=== PATIENT | female | born 1935 | race Caucasian/White ===

== ENCOUNTER 2017-05-10 09:34 | Emergency (ER) | payer OTHER ==
[~2017-05-10] VITALS: Ht 162.6 cm; Wt 68.0 kg
[2017-05-10 09:39] VITALS: BP 168/76; PULSE 73; RESP 16; TEMP 98.4; O2SAT 98
[2017-05-10] MEDS ORDERED: HYDR200T3 PO (10:29)
[2017-05-10] MEDS ORDERED: PRED5TAB PO (10:29)
[2017-05-10] MEDS ORDERED: ALEN1TAB48 PO (10:29)
[2017-05-10] MEDS ORDERED: FOLI1TAB6 PO (10:29)
[2017-05-10] MEDS ORDERED: AMLO10TA2 PO (10:29)
[2017-05-10] MEDS ORDERED: METH2.5T PO (10:29)
[2017-05-10] MEDS ORDERED: TIZA4CAP3 PO (10:29)
[2017-05-10] MEDS ORDERED: ASPI-516 CHEW (10:29)
[2017-05-10] MEDS ORDERED: SIMV40TA PO (10:29)
[2017-05-10 10:58] VITALS: BP 159/70; PULSE 72; RESP 18; O2SAT 96
--- NOTE | 2017-05-10 11:16 | PD ---
HPI Chief Complaint: Musculoskeletal Complaint Time Seen by Provider: 10:58 Travel History International Travel<30 days: No Contact w/Intl Traveler<30days: No Traveled to known affect area: No History of Present Illness HPI This is an 81-year-old female presented there complaining of left buttock pain. Patient states that her pain started 2 days ago, located in the left buttock area, 4 out of 10, no radiation, nothing makes it better or worse,dull, cramp like, worse when she lays on her left buttock and gets better when she is moving around. Denies any fevers chills or night sweats she also denies any trauma or falls. PFSH Past Medical History Cancer: Yes (r breast) Chemotherapy: Yes Hypertension: Yes Immune Disorder: Yes (ra) Tetanus Vaccination: < 5 Years Influenza Vaccination: Yes Past Surgical History Mastectomy: Yes (r ) Other Surgery: Yes (evein stripping) Social History Alcohol Use: Yes (occ) Tobacco Use: No Allergies-Medications (Allergen,Severity, Reaction): Coded Allergies: meperidine (Verified Allergy, Severe, RASH, 05/10/17) Reported Meds & Prescriptions Reported Meds & Active Scripts Active Reported Alendronate (Alendronate Sodium) 70 Mg Tab 70 Mg PO Q7D Prednisone 5 Mg Tab 5 Mg PO DAILY Tizanidine (Tizanidine HCl) 4 Mg Cap 4 Mg PO DAILY Aspirin 81 Mg Chew 81 Mg CHEW DAILY Folic Acid 1 Mg Tablet 1 Tab PO DAILY Hydroxychloroquine (Hydroxychloroquine Sulfate) 200 Mg Tab 200 Mg PO DAILY Takw with food Simvastatin 40 Mg Tab 40 Mg PO HS Methotrexate 2.5 Mg Tab 25 Mg PO Q7D Amlodipine (Amlodipine Besylate) 10 Mg Tab 10 Mg PO DAILY Review of Systems Except as stated in HPI: all other systems reviewed are Neg Physical Exam Narrative GENERAL: Alert oriented 3 no acute distress. SKIN: Focused skin assessment warm/dry. HEAD: Atraumatic. Normocephalic. EYES: Pupils equal and round. No scleral icterus. No injection or drainage. ENT: No nasal bleeding or discharge. Mucous membranes pink and moist. NECK: Trachea midline. No JVD. CARDIOVASCULAR: Regular rate and rhythm. No murmur appreciated. RESPIRATORY: No accessory muscle use. Clear to auscultation. Breath sounds equal bilaterally. GASTROINTESTINAL: Abdomen soft, non-tender, nondistended. Hepatic and splenic margins not palpable. MUSCULOSKELETAL: Tenderness to palpation of the left gluteus area, full range of motion of the knee hip and ankle. No swelling or open lesions, pulses intact motor and sensory function is intact. NEUROLOGICAL: Awake and alert. No obvious cranial nerve deficits. Motor grossly within normal limits. Normal speech. PSYCHIATRIC: Appropriate mood and affect; insight and judgment normal. Data Data Last Documented VS Vital Signs Date Time Temp Pulse Resp B/P (MAP) Pulse Ox O2 Delivery O2 Flow Rate FiO2 05/10/17 10:58 72 18 159/70 (99) 96 Room Air 05/10/17 09:39 98.4 Orders Orders Hip, Uni(4+Vws) W Ap Pelvis (05/10/17 ) MDM Medical Decision Making Medical Screen Exam Complete: Yes Emergency Medical Condition: Yes Differential Diagnosis Muscle spasm, arthritis, degenerative disc disease. Narrative Course This is an 81-year-old female presented there complaining of left buttock pain for last 2 days. Examination shows tenderness to palpation of the left gluteus muscles and I believe this patient will benefit from heat packs and Flexeril. X -ray shows no fracture lotion or some osteoarthritis and degenerative disc disease. We will discharge the patient to follow-up with her primary care physician. Diagnosis Primary Impression: Muscle spasm Additional Instructions: Use heat packs on the affected area. Massage the area for comfort, return to ER if symptoms change or do not improve. Scripts Cyclobenzaprine (Flexeril) 5 Mg Tab 5 MG PO TID for Muscle Spasm, #30 TAB 0 Refills Prov: Jonah Howard MD 05/10/17 Disposition: 01 DISCHARGE HOME Condition: Stable Jonah Howard MD May 10, 2017 11:16
--- NOTE | 2017-05-10 11:21 | RADRPT ---
EXAM DATE/TIME: 05/10/2017 11:04 [facility] COMPARISON: No previous studies available for comparison. INDICATIONS : Left hip pain with no known injury MEDICAL HISTORY : None. SURGICAL HISTORY : None. 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 I do not see a fracture. Bone density is decreased. CONCLUSION: No acute disease. Theodore Blank MD on May 10, 2017 at 11:19 Board Certified Radiologist. This report was verified electronically.
[2017-05-10] MEDS ORDERED: CYCL5TAB PO (11:42)
[2017-05-10 11:58] LABS: BILIRUBIN, URINE NEG (NEG); BLOOD, URINE NEG (NEG); GLUCOSE,URINE NEG (NEG); KETONE, URINE NEG (NEG); NITRITE,URINE NEG (NEG); URINE COLOR YELLOW (YELLW/STRAW); URINE LEUKOCYTE ESTERASE NEG (NEG)
[2017-05-10 12:03] LABS: RBC, URINE 0-2 /hpf (0-3); SQUAMOUS EPITHELIAL CELL URINE 0-5 /hpf (0-5); WBC, URINE 0-2 /hpf (0-5)
== END 2017-05-10 12:28 | disposition home or self-care (01) ==
LOC: EDBD 09:34 → PHED 09:34
DX: M62.838 Other muscle spasm (principal); I10 Essential (primary) hypertension; M06.9 Rheumatoid arthritis, unspecified; Z85.3 Personal history of malignant neoplasm of breast; Z92.21 Personal history of antineoplastic chemotherapy
CPT/HCPCS: 73503; 81001; 99284

== ENCOUNTER 2017-05-14 08:15 | Emergency (ER) | payer OTHER ==
[~2017-05-14] VITALS: Ht 162.6 cm; Wt 66.0 kg
[~2017-05-14 08:15] MED LIST: ALEN1TAB48 PO; AMLO10TA2 PO; ASPI-516 CHEW; CYCL5TAB PO; FOLI1TAB6 PO; HYDR200T3 PO; METH2.5T PO; PRED5TAB PO; SIMV40TA PO; TIZA4CAP3 PO
[2017-05-14 08:28] VITALS: BP 159/72; PULSE 74; RESP 16; TEMP 97.7; O2SAT 97
[2017-05-14] MEDS ORDERED: traMADol HCL 50 MG TAB PO ONE (09:45)
[2017-05-14] MEDS ORDERED: ACETAMINOPHEN 500 MG CPLT PO ONE (09:45)
[2017-05-14] MEDS ORDERED: valACYclovir HCL 500 MG TAB PO ONE (09:45)
[2017-05-14] MEDS ORDERED: VALT1TAB PO (10:09)
[2017-05-14] MEDS ORDERED: TRAM50TA PO (10:09)
[2017-05-14] MEDS ORDERED: DOCU8.6T PO (10:09)
--- NOTE | 2017-05-14 10:11 | PD ---
HPI Chief Complaint: Pain: Acute or Chronic Time Seen by Provider: 09:13 Travel History International Travel<30 days: No Contact w/Intl Traveler<30days: No Traveled to known affect area: No History of Present Illness HPI 78-year-old woman, presents emerged department with left-sided back, buttock, and leg pain radiating down the leg. He she was seen earlier and had x-rays and nothing was found. She started Flexeril. Since then she has noted blistering rash on the leg. She has a history of rheumatoid arthritis. Otherwise fairly healthy. History Past Medical History Narrative Medical Rheumatoid arthritis Social History Alcohol Use: Yes (occ) Tobacco Use: No Allergies-Medications (Allergen,Severity, Reaction): Coded Allergies: meperidine (Verified Allergy, Severe, RASH, 05/14/17) Reported Meds & Prescriptions Reported Meds & Active Scripts Active Flexeril (Cyclobenzaprine HCl) 5 Mg Tab 5 Mg PO TID Reported Alendronate (Alendronate Sodium) 70 Mg Tab 70 Mg PO Q7D Prednisone 5 Mg Tab 5 Mg PO DAILY Tizanidine (Tizanidine HCl) 4 Mg Cap 4 Mg PO DAILY Aspirin 81 Mg Chew 81 Mg CHEW DAILY Folic Acid 1 Mg Tablet 1 Tab PO DAILY Hydroxychloroquine (Hydroxychloroquine Sulfate) 200 Mg Tab 200 Mg PO DAILY Takw with food Simvastatin 40 Mg Tab 40 Mg PO HS Methotrexate 2.5 Mg Tab 25 Mg PO Q7D Amlodipine (Amlodipine Besylate) 10 Mg Tab 10 Mg PO DAILY Review of Systems Except as stated in HPI: all other systems reviewed are Neg Physical Exam Narrative GENERAL: Well-appearing 81-year-old woman, no acute distress. SKIN: Warm and dry. CARDIOVASCULAR: Warm and well perfused. RESPIRATORY: Normal rate and effort. MUSCULOSKELETAL: Normal appearance of the hip back and legs with the exception of several small herpetiform lesions on the lower leg. NEUROLOGICAL: Awake and alert. No gross deficits. Data Data Last Documented VS Vital Signs Date Time Temp Pulse Resp B/P (MAP) Pulse Ox O2 Delivery O2 Flow Rate FiO2 05/14/17 08:28 97.7 74 16 159/72 (101) 97 Room Air Orders Orders Valacyclovir (Valtrex) (05/14/17 09:45) Acetaminophen (Tylenol) (05/14/17 09:45) Tramadol (Ultram) (05/14/17 09:45) MDM Medical Decision Making Medical Screen Exam Complete: Yes Emergency Medical Condition: Yes Differential Diagnosis Zoster, radiculopathy, sciatica, other Narrative Course Medical decision making 81-year-old woman with what sounds like radicular back and leg pain with evidence of zoster. Recommend treatment for zoster, outpatient follow-up. No history of muscular skeletal back problems. No trauma. Diagnosis Primary Impression: Zoster Additional Instructions: Take Valtrex as prescribed. Take acetaminophen and tramadol as needed for pain. Return to the emergency department for any new or worsening symptoms. Follow-up with her primary doctor in 1 week. Take Lili-Colace for as long as you are taking tramadol. Do not take your muscle relaxers while taking tramadol. Med/Other Pt SpecificInfo: Prescription(s) given Scripts Sennosides-Docusate Sodium (Docusate Sodium-Senna) 8.6-50 Mg Tab 2 TAB PO HS for Prevent Constipation, #20 TAB 0 Refills Prov: Robert Polo MD 05/14/17 Tramadol (Tramadol) 50 Mg Tab 50 MG PO Q8H Y for PAIN, #21 TAB 0 Refills Prov: Robert Polo MD 05/14/17 Valacyclovir (Valtrex) 1,000 Mg Tab 1000 MG PO TID for Mgmt Viral Infection for 7 Days, TAB 0 Refills Prov: Robert Polo MD 05/14/17 Disposition: 01 DISCHARGE HOME Condition: Stable Robert Polo MD May 14, 2017 10:11
== END 2017-05-14 10:31 | disposition home or self-care (01) ==
LOC: PHED 08:15 → PHEFT 10:31
DX: B02.9 Zoster without complications (principal); M06.9 Rheumatoid arthritis, unspecified
CPT/HCPCS: 99284